=== PATIENT | male | born 1950 | race Caucasian/White ===

== ENCOUNTER 2017-05-31 06:58 | Day surgery (SDC) | payer OTHER, MEDICARE ==
[2017-05-30 14:08] VITALS: BMI 28.5
[2017-05-31 08:39] VITALS: TEMP 97.5
[2017-05-31 09:56] VITALS: BP 122/74; PULSE 66
--- NOTE | 2017-06-04 12:46 | PATH ---
Surgical Pathology Report Patient Name: CORKY MCGOWAN [facility]. Rec. #: [id number] /Age/Gender: 1950 (Age: 66) / M Account: [id number] Location: [facility]-ENDOSCOPY Taken: 05/31/2017 Received: 05/31/2017 Reported: 06/04/2017 Physicians: Joseph Cornell M.D. Specimen(s) Received RECTAL POLYP Clinical History Family history of colon cancer, personal history of colon polyp Colon rectal polyp, diverticulosis, hemorrhoids Final Diagnosis RECTUM, POLYP, BIOPSY: FRAGMENTS OF HYPERPLASTIC POLYP. Electronically Signed Stephen Castle M.D. Gross Description Received in formalin, labeled "biopsy rectal polyp" are 3 david, irregular portions of soft tissue ranging from 0.2-0.4 cm. in greatest dimension. The specimens are submitted in toto in one cassette. /05/31/201705/31/2017
== END 2017-05-31 09:45 | disposition home or self-care (01) ==
LOC: JASU-ENDO 06:58
PROVIDERS: ATTEND Internal Medicine Gastroenterology
PROC: 0DBP8ZX Excision of Rectum, Via Natural or Artificial Opening Endoscopic, Diagnostic (ICD-10-PCS; principal; 2017-05-31 08:00)
DX: Z12.11 Encounter for screening for malignant neoplasm of colon (principal); Z86.010 Personal history of colon polyps; Z80.0 Family history of malignant neoplasm of digestive organs; K62.1 Rectal polyp; K64.8 Other hemorrhoids; K57.30 Diverticulosis of large intestine without perforation or abscess without bleeding
CPT/HCPCS: 88305-TC

== ENCOUNTER 2018-11-05 07:38 | Day surgery (SDC) | payer OTHER, MEDICARE ==
[2018-11-04 16:32] VITALS: BMI 29.7
[2018-11-05 09:12] VITALS: TEMP 97.9
[2018-11-05 10:07] VITALS: BP 128/86; PULSE 63
--- NOTE | 2018-11-06 17:23 | PATH ---
Surgical Pathology Report Patient Name: CORKY MCGOWAN [facility]. Rec. #: [id number] /Age/Gender: 1950 (Age: 68) / M Account: [id number] Location: [facility]-ENDOSCOPY Taken: 11/05/2018 Received: 11/05/2018 Reported: 11/06/2018 Physicians: Joseph Cornell M.D. Specimen(s) Received A: BX 2ND PORTION DUODENUM AND BULB B: BX BODY AND ANTRUM C: BX GE JUNCTION Clinical History History of gastric metaplasia and H. Pylori Postoperative diagnosis: Atrophic gastritis, GERD, hiatal hernia Final Diagnosis A. DUODENUM, SECOND PORTION AND DUODENAL BULB, BIOPSY: DUODENAL MUCOSA WITHOUT SIGNIFICANT PATHOLOGIC FINDINGS. B. STOMACH, BODY AND ANTRUM, BIOPSY: GASTRIC MUCOSA WITH MILD CHRONIC GASTRITIS AND FOCAL INTESTINAL METAPLASIA. IMMUNOHISTOCHEMICAL STAIN FOR H. PYLORI IS NEGATIVE. C. GE JUNCTION, BIOPSY: SQUAMOCOLUMNAR MUCOSA WITH MODERATE ACUTE AND CHRONIC INFLAMMATION AND CHANGES OF MODERATE REFLUX ESOPHAGITIS. NO INTESTINAL METAPLASIA OR DYSPLASIA IDENTIFIED. Electronically Signed Cari Turpin M.D. Gross Description A. Received in formalin, labeled "second portion of duodenum and bulb" are 3 david, irregular portions of soft tissue ranging from 0.3-0.7 cm. in greatest dimension. The specimens are submitted in toto in one cassette. B. Received in formalin, labeled "body and antrum biopsy" are 8 david, irregular portions of soft tissue ranging from 0.2-0.4 cm. in greatest dimension. The specimens are submitted in toto in one cassette. C. Received in formalin, labeled "GE junction" are 6 david, irregular portions of soft tissue ranging from 0.1-0.3 cm. in greatest dimension. The specimens are submitted in toto in one cassette. 11/05/201811/05/2018
== END 2018-11-05 10:05 | disposition home or self-care (01) ==
LOC: JASU-ENDO 07:38
PROVIDERS: ATTEND Internal Medicine Gastroenterology
PROC: 0DB68ZX Excision of Stomach, Via Natural or Artificial Opening Endoscopic, Diagnostic (ICD-10-PCS; 2018-11-05)
PROC: 0DB48ZX Excision of Esophagogastric Junction, Via Natural or Artificial Opening Endoscopic, Diagnostic (ICD-10-PCS; principal; 2018-11-05 08:30)
DX: K22.10 Ulcer of esophagus without bleeding (principal); K44.9 Diaphragmatic hernia without obstruction or gangrene; K21.0 Gastro-esophageal reflux disease with esophagitis; K29.50 Unspecified chronic gastritis without bleeding
CPT/HCPCS: 88305-TC; 88342-TC

== ENCOUNTER 2022-11-16 04:39 | Day surgery (SDC) | payer OTHER, BC ==
[2022-11-15 14:15] VITALS: BMI 27.4
[2022-11-16 10:16] VITALS: TEMP 97.1
[2022-11-16 10:45] VITALS: BP 130/79; PULSE 80; RESP 16
== END 2022-11-16 10:50 | disposition home or self-care (01) ==
LOC: JASU-ENDO 04:39
PROVIDERS: ATTEND Internal Medicine Gastroenterology
PROC: 0DBL8ZX Excision of Transverse Colon, Via Natural or Artificial Opening Endoscopic, Diagnostic (ICD-10-PCS; 2022-11-16)
PROC: 0DBP8ZX Excision of Rectum, Via Natural or Artificial Opening Endoscopic, Diagnostic (ICD-10-PCS; 2022-11-16)
PROC: 0DBM8ZX Excision of Descending Colon, Via Natural or Artificial Opening Endoscopic, Diagnostic (ICD-10-PCS; principal; 2022-11-16 10:00)
DX: Z12.11 Encounter for screening for malignant neoplasm of colon (principal); D12.3 Benign neoplasm of transverse colon; D12.4 Benign neoplasm of descending colon; D12.8 Benign neoplasm of rectum; K57.30 Diverticulosis of large intestine without perforation or abscess without bleeding; K64.8 Other hemorrhoids; Z86.010 Personal history of colon polyps; Z80.0 Family history of malignant neoplasm of digestive organs; Z83.71 Family history of colonic polyps; I10 Essential (primary) hypertension
CPT/HCPCS: 88305-TC